=== PATIENT | male | born 1955 | race Caucasian/White ===

== ENCOUNTER 2021-05-17 07:37 | Outpatient (CLI) | payer OTHER ==
[2021-05-17] VITALS (17 sets, daily range): BP systolic 81–114; BP diastolic 49–82
== END 2021-05-17 23:59 | disposition home or self-care (01) ==
LOC: CARD DIAG 07:37
PROVIDERS: ATTEND Internal Medicine Interventional Cardiology
DX: R55 Syncope and collapse (principal)
CPT/HCPCS: 93660